=== PATIENT | male | born 1955 | race Caucasian/White ===

== ENCOUNTER → 2023-11-30 08:16 | Outpatient (BNVA) | payer MEDICARE, SELFPAY | PROVIDERS: Family Provider Family Medicine; PCP Family Medicine; Visit Provider Podiatrist Foot & Ankle Surgery | DX: L60.0 Ingrowing nail (principal); E11.9 Type 2 diabetes mellitus without complications | CPT/HCPCS: 99203 ==

== ENCOUNTER → 2023-12-15 13:43 | Outpatient (BNVA) | payer MEDICARE, SELFPAY | PROVIDERS: Family Provider Family Medicine; PCP Family Medicine; Visit Provider Podiatrist Foot & Ankle Surgery | DX: L60.0 Ingrowing nail (principal); E11.69 Type 2 diabetes mellitus with other specified complication | CPT/HCPCS: 99213 ==

== ENCOUNTER → 2024-03-21 10:47 | Outpatient (BNVA) | payer MEDICARE, SELFPAY | PROVIDERS: Family Provider Family Medicine; PCP Family Medicine; Visit Provider Podiatrist Foot & Ankle Surgery | DX: L60.0 Ingrowing nail (principal) | CPT/HCPCS: 11750; A6219 ==

== ENCOUNTER → 2024-04-25 13:25 | Outpatient (BNVA) | payer MEDICARE, SELFPAY | PROVIDERS: Family Provider Family Medicine; PCP Family Medicine; Visit Provider Podiatrist Foot & Ankle Surgery | DX: L60.3 Nail dystrophy (principal); I73.9 Peripheral vascular disease, unspecified; E11.69 Type 2 diabetes mellitus with other specified complication | CPT/HCPCS: 11721 ==